=== PATIENT | male | born 1980 | race Asian ===

== ENCOUNTER 2017-06-08 10:48 | Emergency (ER) | payer SELFPAY ==
[~2017-06-08] VITALS: Ht 167.6 cm; Wt 54.5 kg
[2017-06-08 13:09] VITALS: BP 131/90
== END 2017-06-08 13:12 | disposition home or self-care (01) ==
LOC: EEVIPCON 10:51 → EMS 10:51 → EDBD 10:51 → EMS 13:12
DX: F43.20 Adjustment disorder, unspecified (principal); F15.90 Other stimulant use, unspecified, uncomplicated; Z88.0 Allergy status to penicillin
CPT/HCPCS: 99284

== ENCOUNTER 2017-06-23 20:03 | Emergency (ER) | payer SELFPAY ==
[~2017-06-23] VITALS: Ht 167.6 cm; Wt 59.1 kg
[2017-06-23 20:13] VITALS: BP 162/109
== END 2017-06-23 21:31 | disposition left against medical advice (07) ==
LOC: EMS 20:04
DX: Z00.8 Encounter for other general examination (principal); F15.90 Other stimulant use, unspecified, uncomplicated; F17.210 Nicotine dependence, cigarettes, uncomplicated; Z53.21 Procedure and treatment not carried out due to patient leaving prior to being seen by health care provider